=== PATIENT | female | born 1970 | race Hispanic/Latino ===

== ENCOUNTER 2020-01-26 11:36 | Outpatient (CLI) | payer OTHER ==
--- NOTE | 2020-01-26 13:25 | MMO ---
Bilateral MAMMO Bilat Screen [facility]. CLINICAL HISTORY: Patient is 49 years old and is seen for screening. The patient has no family history of breast cancer. The patient has no personal history of cancer. VIEWS: The views performed were: bilateral craniocaudal with tomosynthesis and bilateral mediolateral oblique with tomosynthesis. This study has been interpreted with the assistance of computer-aided detection. MAMMOGRAM FINDINGS: The breasts are heterogeneously dense, which could obscure a lesion on mammography. There is a questionable small nodular density in the right outer breast. In the left breast, there are no suspicious masses, calcifications or areas of architectural distortion. IMPRESSION: FINDING IN THE RIGHT BREAST REQUIRES ADDITIONAL EVALUATION. SPOT COMPRESSION IS RECOMMENDED. AN ULTRASOUND EXAM IS RECOMMENDED. ADDITIONAL IMAGING. THE RESULTS OF THIS EXAM WERE SENT TO THE PATIENT. ACR BI-RADS Category 0 - Incomplete: Need additional imaging evaluation. [facility] will notify the patient of the need for additional imaging services. MAMMOGRAPHY NOTE: 1. A negative mammogram report should not delay a biopsy if a dominant of clinically suspicious mass is present. 2. Approximately 10% to 15% of breast cancers are not detected by mammography. 3. Adenosis and dense breasts may obscure an underlying neoplasm. Reported by: VIVIANA SHARMA MD Electonically Signed: [id number]
== END 2020-01-26 11:37 | disposition home or self-care (01) ==
LOC: BICMAMMO 11:36 → EDSTATUS 12:15
PROVIDERS: ATTEND Clinical Nurse Specialist Medical-Surgical
DX: Z12.31 Encounter for screening mammogram for malignant neoplasm of breast (principal)
CPT/HCPCS: 77063; 77067

== ENCOUNTER 2020-02-29 14:49 | Outpatient (CLI) | payer OTHER ==
--- NOTE | 2020-02-29 15:20 | MMO ---
Right Breast MAMMO Unilat Diag [facility]. CLINICAL HISTORY: Patient is 49 years old and is seen for additional evaluation requested from prior study. The patient has no family history of breast cancer. The patient has no personal history of cancer. VIEWS: The views performed were: right craniocaudal spot compression with tomosynthesis and right mediolateral with tomosynthesis. FILMS COMPARED: The present examination has been compared to prior imaging studies performed at [facility] on 01/26/2020 and 02/29/2020. This study has been interpreted with the assistance of computer-aided detection. MAMMOGRAM FINDINGS: The breast is heterogeneously dense, which could obscure a lesion on mammography. Nodule does not persist in cc. 4 mm nodule is seen posterior mid right breast on ml. Ultrasound reveals cystic lesions at 11 and 1 oclock. Recommend 6 month follow up right mammogram and ultrasound. IMPRESSION: FINDING IN THE RIGHT BREAST IS PROBABLY BENIGN. FOLLOW-UP IN 6 MONTHS IS RECOMMENDED. THE RESULTS OF THIS EXAM WERE SENT TO THE PATIENT. ACR BI-RADS Category 3 - Probably benign finding - short interval follow-up suggested. [facility] will notify the patient of the need for additional imaging services. MAMMOGRAPHY NOTE: 1. A negative mammogram report should not delay a biopsy if a dominant of clinically suspicious mass is present. 2. Approximately 10% to 15% of breast cancers are not detected by mammography. 3. Adenosis and dense breasts may obscure an underlying neoplasm. Reported by: ANTONIO MCINTOSH MD Electonically Signed: [id number]
--- NOTE | 2020-02-29 15:29 | ULT ---
ULTRASOUND RIGHT BREAST: 02/29/20 INDICATIONS: Ultrasound of the right breast performed to assess a nodular density seen on mammography. 11 o'clock 1 cm from the nipple posteriorly is a tiny hypoechoic lesion measuring in the 3 mm range w hich has the appearance of a tiny cyst. At 1 o'clock 2 cm from the nipple an oblong shaped cystic lesion is seen measuring approximately 3 x 7 mm. No suspicious sonographic abnormality. IMPRESSION: Two hypoechoic cystic lesions are seen by ultrasound. These may or may not correspond to the nodular density seen on mammography. No suspicious sonographic abnormality. Recommend follow-up right breast mammogram and ultrasound in six months to confirm stability. BIRADS 3: Probably Benign Finding Initial Short-Interval Follow-Up Suggested Initial short-term follow up (usually 6-month) examination
== END 2020-02-29 14:50 | disposition home or self-care (01) ==
LOC: BICMAMMO 14:49
PROVIDERS: ATTEND Clinical Nurse Specialist Medical-Surgical
DX: N63.10 Unspecified lump in the right breast, unspecified quadrant (principal); N64.9 Disorder of breast, unspecified
CPT/HCPCS: G0279